=== PATIENT | male | born 1990 | race Caucasian/White ===

== ENCOUNTER 2019-07-05 20:50 | Emergency (ER) | payer OTHER ==
[~2019-07-05] VITALS: Ht 175.3 cm; Wt 65.8 kg
[2019-07-05 21:39] VITALS: BP 121/66
== END 2019-07-05 21:41 | disposition home or self-care (01) ==
LOC: ER 20:50
DX: S61.211A Laceration without foreign body of left index finger without damage to nail, initial encounter (principal); X58.XXXA Exposure to other specified factors, initial encounter; Y92.89 Other specified places as the place of occurrence of the external cause; Y93.89 Activity, other specified; Y99.8 Other external cause status